=== PATIENT | male | born 1985 | race Caucasian/White ===

== ENCOUNTER 2017-06-07 19:43 | Emergency (ER) | payer SELFPAY ==
[~2017-06-07] VITALS: Ht 177.8 cm; Wt 66.8 kg
[~2017-06-07 19:43] MED LIST: BENADRYL50 MG PO; COGENTIN 2MG2 MG/TA1 PO; DESYREL 50MG50 MG PO; INVEGA SUSTENN234 MG IM; LITHIUM 30300 MG/CAP PO; LITHOBID 3300 MG/TAB PO; SEROQUEL400 MG PO
[2017-06-07 19:46] VITALS: BP 102/76; PULSE 54; TEMP 96.8
[2017-06-07] MEDS ORDERED: NORCO 325 MG-51 TAB PO (21:41)
== END 2017-06-07 22:11 | disposition home or self-care (01) ==
LOC: COL.ER 19:43
DX: S39.012A Strain of muscle, fascia and tendon of lower back, initial encounter (principal); F31.9 Bipolar disorder, unspecified; F17.210 Nicotine dependence, cigarettes, uncomplicated; W00.0XXA Fall on same level due to ice and snow, initial encounter
CPT/HCPCS: J1170; J2550

== ENCOUNTER 2017-08-03 03:31 | Emergency (ER) | payer SELFPAY ==
[~2017-08-03] VITALS: Wt 69.1 kg
[~2017-08-03 03:31] MED LIST changes: +NORCO 325 MG-51 TAB PO
[2017-08-03 03:35] VITALS: BP 116/57; TEMP 98.1
[2017-08-03] MEDS ORDERED: CLEOCIN HCL300 MG PO (04:00)
[2017-08-03] MEDS ORDERED: NORCO 325 MG-51 TAB PO (04:00)
[2017-08-03] MEDS ORDERED: VOLTAREN 75 DR75 MG PO (04:00)
[2017-08-03 04:20] VITALS: PULSE 89
== END 2017-08-03 04:30 | disposition home or self-care (01) ==
LOC: COL.ER 03:31
DX: K02.9 Dental caries, unspecified (principal); K04.7 Periapical abscess without sinus; F31.9 Bipolar disorder, unspecified; F17.210 Nicotine dependence, cigarettes, uncomplicated

== ENCOUNTER 2017-08-04 01:44 | Emergency (ER) | payer SELFPAY ==
[~2017-08-04] VITALS: Ht 177.8 cm; Wt 68.6 kg
[~2017-08-04 01:44] MED LIST changes: +CLEOCIN HCL300 MG PO; +VOLTAREN 75 DR75 MG PO
[2017-08-04 03:01] VITALS: BP 111/58; PULSE 79; TEMP 97.9
== END 2017-08-04 03:02 | disposition home or self-care (01) ==
LOC: COL.ER 01:44
DX: K04.7 Periapical abscess without sinus (principal); E11.9 Type 2 diabetes mellitus without complications; F31.9 Bipolar disorder, unspecified; F43.10 Post-traumatic stress disorder, unspecified; F17.210 Nicotine dependence, cigarettes, uncomplicated

== ENCOUNTER 2017-08-24 23:05 | Emergency (ER) | payer SELFPAY ==
[~2017-08-24] VITALS: Ht 177.8 cm; Wt 71.5 kg
[2017-08-24 23:08] VITALS: BP 117/80; TEMP 97
[2017-08-25 01:05] VITALS: PULSE 80
== END 2017-08-25 01:06 | disposition home or self-care (01) ==
LOC: COL.ER 23:05
DX: S93.602A Unspecified sprain of left foot, initial encounter (principal); G89.29 Other chronic pain; M54.9 Dorsalgia, unspecified; F17.210 Nicotine dependence, cigarettes, uncomplicated; X50.0XXA Overexertion from strenuous movement or load, initial encounter; Y92.009 Unspecified place in unspecified non-institutional (private) residence as the place of occurrence of the external cause

== ENCOUNTER 2017-09-14 14:26 | Emergency (ER) | payer SELFPAY ==
[~2017-09-14] VITALS: Ht 177.8 cm; Wt 65.1 kg
[2017-09-14 14:30] VITALS: BP 105/73; TEMP 97.5
[2017-09-14 22:34] VITALS: PULSE 94
== END 2017-09-14 22:21 | disposition home or self-care (01) ==
LOC: COL.ER 14:26
DX: G89.29 Other chronic pain (principal); M54.5 Low back pain; G47.00 Insomnia, unspecified; F17.210 Nicotine dependence, cigarettes, uncomplicated
CPT/HCPCS: J0696; J1885

== ENCOUNTER → 2017-09-14 | Outpatient (REF) ==
[2017-09-14 19:26] VITALS: BP 105/73; PULSE 113; TEMP 97.5
== END ==
LOC: COL.ER 17:53
DX: Z04.41 Encounter for examination and observation following alleged adult rape (principal)

== ENCOUNTER 2017-10-28 18:11 | Emergency (ER) | payer SELFPAY ==
[~2017-10-28] VITALS: Ht 177.8 cm; Wt 65.9 kg
[2017-10-28 18:12] VITALS: TEMP 98.5
[2017-10-28 19:27] LABS: BASO % 0.2 % (0.0-2.0); EOS # 0.1 (0.0-0.7); EOS % 0.8 % (0-4.0); GRAN # 6.7 (1.4-6.5); GRAN % 67.9 % (42.2-75.2); HEMATOCRIT 41.8 % (42.0-52.0); HEMOGLOBIN 14.4 g/dl (13.5-18.0); LYMPH # 2.5 (1.2-3.4); LYMPH % 25.1 % (20.0-51.0); MEAN CELL VOLUME 90 fl (80.0-100.0); MEAN CORPUSCULAR HEMOGLOBIN 31 pg (27.0-31.0); MEAN CORPUSCULAR HGB CONC 34 g/dl (33.0-37.0); MEAN PLATELET VOLUME 9.5 fl (7.4-10.4); MONO # 0.6 (0.1-0.6); MONO % 5.8 % (1.7-9.3); PLATELET COUNT 276 K/mm3 (130-400); RED BLOOD COUNT 4.65 M/mm3 (4.20-5.60); REDCELL DISTRIBUTION WIDTH-CV 12.8 % (11.5-14.5)
[2017-10-28 19:52] LABS: ALANINE AMINOTRANSFERASE 42 U/L (21-72); ALBUMIN 3.7 gm/dL (3.5-5.0); ALKALINE PHOSPHATASE 89 U/L (50-136); ANION GAP 10 mmol/L (7-16); AST,SGOT 20 U/L (15-37); BILIRUBIN,TOTAL 0.9 mg/dL (0.0-1.0); BLOOD UREA NITROGEN 10 mg/dL (9-20); CALCIUM 8.9 mg/dL (8.4-10.2); CARBON DIOXIDE 23 mmol/L (22-30); CHLORIDE 108 mmol/L (98-107); CREATININE, serum 0.75 mg/dL (0.66-1.25); GLUCOSE 92 mg/dL (74-106); POTASSIUM 3.4 mmol/L (3.4-5.0); SODIUM 141 mmol/L (137-145); TOTAL PROTEIN 6.2 gm/dL (6.4-8.2)
[2017-10-28 20:03] LABS: TROPONIN-I < 0.012 ng/mL (0.000-0.034)
[2017-10-28 20:47] VITALS: BP 112/73; PULSE 60
== END 2017-10-28 20:47 | disposition home or self-care (01) ==
LOC: COL.ER 18:11
PROVIDERS: Emergency Medicine
DX: R07.89 Other chest pain (principal); R06.00 Dyspnea, unspecified; R42 Dizziness and giddiness; Z59.0 Homelessness; F31.9 Bipolar disorder, unspecified; F20.9 Schizophrenia, unspecified; F17.210 Nicotine dependence, cigarettes, uncomplicated; F12.90 Cannabis use, unspecified, uncomplicated; E11.9 Type 2 diabetes mellitus without complications
CPT/HCPCS: J7030

== ENCOUNTER 2017-10-29 00:45 | Emergency (ER) | payer SELFPAY ==
[2017-10-29 00:49] VITALS: TEMP 98.7
[2017-10-29 01:27] LABS: BASO % 0.3 % (0.0-2.0); EOS # 0.1 (0.0-0.7); EOS % 1.1 % (0-4.0); GRAN # 6.6 (1.4-6.5); HEMATOCRIT 41.7 % (42.0-52.0); HEMOGLOBIN 14.4 g/dl (13.5-18.0); LYMPH % 28.4 % (20.0-51.0); MEAN CELL VOLUME 91 fl (80.0-100.0); MEAN CORPUSCULAR HEMOGLOBIN 31 pg (27.0-31.0); MEAN CORPUSCULAR HGB CONC 35 g/dl (33.0-37.0); MEAN PLATELET VOLUME 9.4 fl (7.4-10.4); MONO # 0.7 (0.1-0.6); MONO % 6.9 % (1.7-9.3); PLATELET COUNT 264 K/mm3 (130-400); RED BLOOD COUNT 4.61 M/mm3 (4.20-5.60); REDCELL DISTRIBUTION WIDTH-CV 12.8 % (11.5-14.5)
[2017-10-29 01:38] LABS: ALANINE AMINOTRANSFERASE 41 U/L (21-72); ALBUMIN 3.8 gm/dL (3.5-5.0); ALKALINE PHOSPHATASE 92 U/L (50-136); ANION GAP 11 mmol/L (7-16); AST,SGOT 27 U/L (15-37); BILIRUBIN,TOTAL 1.6 mg/dL (0.0-1.0); BLOOD UREA NITROGEN 10 mg/dL (9-20); CALCIUM 9.2 mg/dL (8.4-10.2); CARBON DIOXIDE 23 mmol/L (22-30); CHLORIDE 106 mmol/L (98-107); CREATININE, serum 0.75 mg/dL (0.66-1.25); GLUCOSE 87 mg/dL (74-106); LIPASE 70 U/L (23-300); MAGNESIUM 1.6 mg/dL (1.6-2.3); PHOSPHOROUS 3.3 mg/dL (2.5-4.5); POTASSIUM 3.3 mmol/L (3.4-5.0); SODIUM 141 mmol/L (137-145); TOTAL PROTEIN 6.4 gm/dL (6.4-8.2)
[2017-10-29 01:40] LABS: ACETAMINOPHEN < 10 ug/mL (10-30); ALCOHOL(ethanol),MEDICAL < 10 mg/dL; SALICYLATE < 1.0 mg/dL
[2017-10-29 01:57] LABS: COLLECTION METHOD CLEAN CATCH
[2017-10-29 02:04] LABS: MUCOUS Present /lpf; PH 5 (5-8); SQUAMOUS EPITHELIAL None Seen /hpf; URINE APPEARANCE Clear; URINE BACTERIA None Seen /hpf; URINE BILIRUBIN Negative (NEGATIVE); URINE BLOOD Negative (NEGATIVE); URINE COLOR Yellow; URINE GLUCOSE Negative (NEGATIVE); URINE KETONE 1+ (NEGATIVE); URINE LEUKOCYTE ESTERASE Negative (NEGATIVE); URINE NITRATE Negative (NEGATIVE); URINE PROTEIN(semi-quant) Negative (NEGATIVE); URINE RBC 0-2 /hpf; URINE UROBILINOGEN Negative (NEGATIVE)
[2017-10-29 02:09] LABS: TRICYCLIC ANTIDEPRESS URINE NEGATIVE
[2017-10-29 03:37] VITALS: BP 136/56; PULSE 89
== END 2017-10-29 03:38 | disposition home or self-care (01) ==
LOC: COL.ER 00:45
PROVIDERS: Emergency Medicine
DX: F20.9 Schizophrenia, unspecified (principal); F29 Unspecified psychosis not due to a substance or known physiological condition; M54.9 Dorsalgia, unspecified; G89.29 Other chronic pain; F17.210 Nicotine dependence, cigarettes, uncomplicated

== ENCOUNTER 2017-10-29 21:34 | Emergency (ER) | payer SELFPAY ==
[~2017-10-29] VITALS: Ht 177.8 cm; Wt 68.2 kg
[2017-10-29 21:37] VITALS: TEMP 97.9
[2017-10-29 23:20] VITALS: PULSE 95
== END 2017-10-29 23:20 | disposition home or self-care (01) ==
LOC: COL.ER 21:34
DX: R53.83 Other fatigue (principal); F31.9 Bipolar disorder, unspecified; E11.9 Type 2 diabetes mellitus without complications; F43.10 Post-traumatic stress disorder, unspecified; F17.210 Nicotine dependence, cigarettes, uncomplicated; F12.10 Cannabis abuse, uncomplicated

== ENCOUNTER 2017-10-30 20:22 | Emergency (ER) | payer SELFPAY ==
[~2017-10-30] VITALS: Ht 177.8 cm; Wt 69.0 kg
[2017-10-30 20:32] VITALS: BP 120/90; TEMP 97.9
[2017-10-31 00:49] VITALS: PULSE 90
== END 2017-10-31 00:40 | disposition home or self-care (01) ==
LOC: COL.ER 20:22
DX: E11.9 Type 2 diabetes mellitus without complications (principal); F31.9 Bipolar disorder, unspecified; F20.9 Schizophrenia, unspecified; F41.9 Anxiety disorder, unspecified; F12.90 Cannabis use, unspecified, uncomplicated; Z59.0 Homelessness

== ENCOUNTER 2017-12-09 19:17 | Emergency (ER) | payer SELFPAY ==
[~2017-12-09] VITALS: Ht 177.8 cm; Wt 63.6 kg
[2017-12-09 19:22] VITALS: BP 105/53
[2017-12-09 19:46] LABS: BASO % 0.3 % (0.0-2.0); EOS # 0.1 (0.0-0.7); EOS % 1.6 % (0-4.0); GRAN # 5.3 (1.4-6.5); GRAN % 59.4 % (42.2-75.2); HEMATOCRIT 42.1 % (42.0-52.0); HEMOGLOBIN 14.8 g/dl (13.5-18.0); LYMPH # 2.7 (1.2-3.4); LYMPH % 30.6 % (20.0-51.0); MEAN CELL VOLUME 88 fl (80.0-100.0); MEAN CORPUSCULAR HEMOGLOBIN 31 pg (27.0-31.0); MEAN CORPUSCULAR HGB CONC 35 g/dl (33.0-37.0); MEAN PLATELET VOLUME 9.3 fl (7.4-10.4); MONO # 0.7 (0.1-0.6); PLATELET COUNT 267 K/mm3 (130-400); RED BLOOD COUNT 4.77 M/mm3 (4.20-5.60); REDCELL DISTRIBUTION WIDTH-CV 12.1 % (11.5-14.5)
[2017-12-09 19:51] LABS: INR 1.2 (0.8-3.0); PROTHROMBIN TIME 13.1 SECONDS (9.7-12.8)
[2017-12-09 19:53] LABS: PARTIAL THROMBOPLASTIN TIME 33.7 SECONDS (26.0-37.0)
[2017-12-09 19:54] LABS: ALANINE AMINOTRANSFERASE 40 U/L (21-72); ALBUMIN 3.9 gm/dL (3.5-5.0); ALKALINE PHOSPHATASE 81 U/L (50-136); ANION GAP 14 mmol/L (7-16); AST,SGOT 24 U/L (15-37); BILIRUBIN,TOTAL 1.9 mg/dL (0.0-1.0); BLOOD UREA NITROGEN 15 mg/dL (9-20); CALCIUM 9.3 mg/dL (8.4-10.2); CARBON DIOXIDE 24 mmol/L (22-30); CHLORIDE 100 mmol/L (98-107); CREATININE, serum 0.85 mg/dL (0.66-1.25); GLUCOSE 85 mg/dL (74-106); POTASSIUM 3.2 mmol/L (3.4-5.0); SODIUM 137 mmol/L (137-145); TOTAL PROTEIN 6.6 gm/dL (6.4-8.2)
[2017-12-09 20:06] LABS: TROPONIN-I < 0.012 ng/mL (0.000-0.034)
[2017-12-09 21:00] VITALS: PULSE 67
== END 2017-12-09 21:00 | disposition home or self-care (01) ==
LOC: COL.ER 19:17
PROVIDERS: Family Medicine
DX: R07.9 Chest pain, unspecified (principal); J40 Bronchitis, not specified as acute or chronic; F17.210 Nicotine dependence, cigarettes, uncomplicated
CPT/HCPCS: J7030

== ENCOUNTER 2017-12-18 19:59 | Emergency (ER) | payer SELFPAY ==
[~2017-12-18] VITALS: Ht 177.8 cm; Wt 65.9 kg
[2017-12-18 20:02] VITALS: TEMP 97.1
[2017-12-18 20:24] LABS: BASO % 0.2 % (0.0-2.0); EOS # 0.1 (0.0-0.7); EOS % 1.4 % (0-4.0); GRAN # 6.3 (1.4-6.5); GRAN % 66.8 % (42.2-75.2); HEMATOCRIT 40.7 % (42.0-52.0); HEMOGLOBIN 13.9 g/dl (13.5-18.0); LYMPH # 2.4 (1.2-3.4); LYMPH % 25.7 % (20.0-51.0); MEAN CELL VOLUME 91 fl (80.0-100.0); MEAN CORPUSCULAR HEMOGLOBIN 31 pg (27.0-31.0); MEAN CORPUSCULAR HGB CONC 34 g/dl (33.0-37.0); MEAN PLATELET VOLUME 9.1 fl (7.4-10.4); MONO # 0.5 (0.1-0.6); MONO % 5.6 % (1.7-9.3); PLATELET COUNT 308 K/mm3 (130-400); RED BLOOD COUNT 4.49 M/mm3 (4.20-5.60)
[2017-12-18 20:39] LABS: ALANINE AMINOTRANSFERASE 39 U/L (21-72); ALBUMIN 3.7 gm/dL (3.5-5.0); ALKALINE PHOSPHATASE 69 U/L (50-136); ANION GAP 9 mmol/L (7-16); AST,SGOT 25 U/L (15-37); BLOOD UREA NITROGEN 12 mg/dL (9-20); C-REACTIVE PROTEIN 0.6 mg/dL (0.0-0.9); CALCIUM 9.1 mg/dL (8.4-10.2); CARBON DIOXIDE 25 mmol/L (22-30); CHLORIDE 107 mmol/L (98-107); CREATININE, serum 0.62 mg/dL (0.66-1.25); GLUCOSE 89 mg/dL (74-106); POTASSIUM 3.1 mmol/L (3.4-5.0); SODIUM 141 mmol/L (137-145); TOTAL PROTEIN 6.4 gm/dL (6.4-8.2)
[2017-12-18 20:40] LABS: ALCOHOL(ethanol),MEDICAL < 10 mg/dL
[2017-12-18 20:50] LABS: TROPONIN-I < 0.012 ng/mL (0.000-0.034)
[2017-12-18 22:14] LABS: COLLECTION METHOD CLEAN CATCH
[2017-12-18 22:28] LABS: MUCOUS Present /lpf; PH 6 (5-8); SQUAMOUS EPITHELIAL None Seen /hpf; URINE APPEARANCE Clear; URINE BACTERIA None Seen /hpf; URINE BILIRUBIN Negative (NEGATIVE); URINE BLOOD Negative (NEGATIVE); URINE COLOR Yellow; URINE GLUCOSE Negative (NEGATIVE); URINE KETONE Negative (NEGATIVE); URINE LEUKOCYTE ESTERASE Negative (NEGATIVE); URINE NITRATE Negative (NEGATIVE); URINE PROTEIN(semi-quant) Negative (NEGATIVE); URINE RBC 0-2 /hpf; URINE UROBILINOGEN Negative (NEGATIVE)
[2017-12-18 22:31] LABS: TRICYCLIC ANTIDEPRESS URINE NEGATIVE
[2017-12-18 23:25] VITALS: BP 110/69; PULSE 60
== END 2017-12-18 23:20 | disposition home or self-care (01) ==
LOC: COL.ER 19:59
PROVIDERS: Emergency Medicine
DX: R55 Syncope and collapse (principal); R07.9 Chest pain, unspecified; E87.6 Hypokalemia; F12.90 Cannabis use, unspecified, uncomplicated; F17.210 Nicotine dependence, cigarettes, uncomplicated
CPT/HCPCS: J7030

== ENCOUNTER 2017-12-31 16:56 | Emergency (ER) | payer OTHER ==
[~2017-12-31] VITALS: Ht 177.8 cm; Wt 68.2 kg
[2017-12-31 17:06] VITALS: BP 108/75; TEMP 98.4
[2017-12-31 17:36] LABS: BASO % 0.4 % (0.0-2.0); EOS # 0.2 (0.0-0.7); EOS % 2.2 % (0-4.0); GRAN # 3.9 (1.4-6.5); GRAN % 51.3 % (42.2-75.2); HEMATOCRIT 45.7 % (42.0-52.0); HEMOGLOBIN 15.4 g/dl (13.5-18.0); LYMPH % 39.2 % (20.0-51.0); MEAN CELL VOLUME 91 fl (80.0-100.0); MEAN CORPUSCULAR HEMOGLOBIN 31 pg (27.0-31.0); MEAN CORPUSCULAR HGB CONC 34 g/dl (33.0-37.0); MEAN PLATELET VOLUME 9.4 fl (7.4-10.4); MONO # 0.5 (0.1-0.6); MONO % 6.6 % (1.7-9.3); PLATELET COUNT 303 K/mm3 (130-400); RED BLOOD COUNT 5.05 M/mm3 (4.20-5.60); REDCELL DISTRIBUTION WIDTH-CV 13.1 % (11.5-14.5)
[2017-12-31 17:46] LABS: ACETAMINOPHEN < 10 ug/mL (10-30); ALANINE AMINOTRANSFERASE 47 U/L (21-72); ALBUMIN 4.2 gm/dL (3.5-5.0); ALCOHOL(ethanol),MEDICAL < 10 mg/dL; ALKALINE PHOSPHATASE 72 U/L (50-136); ANION GAP 12 mmol/L (7-16); AST,SGOT 30 U/L (15-37); BILIRUBIN,TOTAL 0.7 mg/dL (0.0-1.0); BLOOD UREA NITROGEN 12 mg/dL (9-20); CALCIUM 8.8 mg/dL (8.4-10.2); CARBON DIOXIDE 24 mmol/L (22-30); CHLORIDE 103 mmol/L (98-107); CREATININE, serum 0.71 mg/dL (0.66-1.25); GLUCOSE 96 mg/dL (74-106); POTASSIUM 3.9 mmol/L (3.4-5.0); SALICYLATE < 1.0 mg/dL; SODIUM 138 mmol/L (137-145)
[2017-12-31 17:54] LABS: TRICYCLIC ANTIDEPRESS URINE NEGATIVE
[2017-12-31 18:19] VITALS: PULSE 81
== END 2017-12-31 18:21 | disposition home or self-care (01) ==
LOC: COL.ER 16:56
PROVIDERS: Nurse Practitioner
DX: F31.9 Bipolar disorder, unspecified (principal); F43.10 Post-traumatic stress disorder, unspecified; F17.210 Nicotine dependence, cigarettes, uncomplicated; F12.90 Cannabis use, unspecified, uncomplicated; Z87.19 Personal history of other diseases of the digestive system; Z86.79 Personal history of other diseases of the circulatory system